=== PATIENT | male | born 1980 | race Caucasian/White ===

== ENCOUNTER 2021-01-31 21:20 | Inpatient (IN) | payer OTHER ==
[~2021-01-31] VITALS: Ht 177.8 cm; Wt 80.7 kg
[2021-01-31 23:27] LABS: HEMOGLOBIN 14.8 gm/dl (14.0-17.5); RED BLOOD COUNT 4.79 M/UL (4.20-5.50); WHITE BLOOD COUNT 10.7 K/UL (4.5-11.0)
[2021-01-31 23:55] LABS: BUN/CREATININE RATIO 21 (0-10)
--- NOTE | 2021-02-01 02:31 | NUR ---
PATIENTS MOTHER CAME OUT TO NURSING STATION STATES PATIENT NEEDS SOMETHING FOR PAIN, THIS NRSE PULLED THE MEDICATION WENT TO PATIENTS ROOM SAW PATIENT SLEEPING BODY TOTALY RELAXED NO FACIAL GRIMIS LT ARM UP BEHIND HIS HEAD I STOOD FOR AT LEAST 2 MIN WAITING FOR PATIET TO WAKE HE DID NOT HE CONTINED TO SLEEP AND RELAXED
[2021-02-01 07:21] LABS: HEMOGLOBIN 15.5 gm/dl (14.0-17.5); RED BLOOD COUNT 5.22 M/UL (4.20-5.50); WHITE BLOOD COUNT 8.4 K/UL (4.5-11.0)
[2021-02-01 07:39] LABS: BUN/CREATININE RATIO 17 (0-10)
[2021-02-02 06:06] LABS: HEMOGLOBIN 16.3 gm/dl (14.0-17.5); RED BLOOD COUNT 5.33 M/UL (4.20-5.50); WHITE BLOOD COUNT 5.6 K/UL (4.5-11.0)
[2021-02-02 06:34] LABS: BUN/CREATININE RATIO 10 (0-10)
[2021-02-02] MEDS ORDERED: DOCUSATE SODIU100 MG PO (10:47)
[2021-02-02] MEDS ORDERED: POLYETHYLENE GL17 GM PO (10:47)
[2021-02-02] MEDS ORDERED: DULCOLAX5 MG PO (10:47)
[2021-02-03 12:15] LABS: HEMOGLOBIN 17.2 gm/dl (14.0-17.5); RED BLOOD COUNT 5.58 M/UL (4.20-5.50); WHITE BLOOD COUNT 6.1 K/UL (4.5-11.0)
[2021-02-03 12:43] LABS: BUN/CREATININE RATIO 11 (0-10)
== END 2021-02-03 15:15 | disposition home or self-care (01) | DRG 389 ==
LOC: PROG CARE 22:24 → M/S 22:24
PROVIDERS: Internal Medicine; ADMIT Internal Medicine
DX: K56.7 Ileus, unspecified (principal); F11.20 Opioid dependence, uncomplicated; K59.00 Constipation, unspecified; Z79.899 Other long term (current) drug therapy
CPT/HCPCS: 36415; 74018; 80048; 80053; 81001; 82550; 83540; 83550; 83605; 83735; 83880; 84100; 85025; 85027; 85652; 86140; 87040; J2270; J7030